=== PATIENT | male | born 1960 ===

== ENCOUNTER 2018-05-08 07:50 | Day surgery (SDC) | payer OTHER ==
[2018-05-07 10:48] LABS: BASOPHILS 0.4 % (0-2); EOSINOPHILS 1.3 % (0-7); HEMATOCRIT 43.6 % (42.0-54.0); HEMOGLOBIN 14.8 g/dL (13.5-17.5); IMMATURE GRANULOCYTES 0.2 % (0-5); LYMPHOCYTES 24.8 % (15-50); MCH 29.4 pg (26.0-34.0); MCHC 33.9 g/dL (31.0-37.0); MCV 86.7 fL (80.0-100.0); MEAN PLATELET VOLUME 9.9 fL (7.4-10.4); MONOCYTES 7.1 % (2-11); NEUTROPHILS 66.2 % (40-80); PLATELET COUNT 171 10x3/uL (130-400); RBC 5.03 10x6/uL (4.20-6.10); RDW 15.1 % (11.5-14.5); WBC 11.2 10x3/uL (4.8-10.8)
[~2018-05-08] VITALS: Ht 177.8 cm; Wt 84.4 kg
[~2018-05-08 07:50] MED LIST: BAYER CHEWABLE81 MG PO; ISOSORBIDE MONO30 M1 PO; KLONOPIN0.5 MG PO; LIPITOR40 MG PO; PROAIR HFA ORAL INH; TENORMIN100 MG PO
[2018-05-08 10:31] VITALS: BP 167/77; Ht 177.8 cm; Wt 84.4 kg
[2018-05-08] MEDS ORDERED: HYDROCODON-ACE1 EAC7 PO (12:56)
[2018-05-08] MEDS ORDERED: CYCLOBENZAPRINE10 MG PO (12:56)
== END 2018-05-08 18:38 | disposition home or self-care (01) ==
LOC: D.OPS 07:50 → D.PAN 10:30 → D.OPS 10:30
PROVIDERS: Anesthesiology
DX: K43.6 Other and unspecified ventral hernia with obstruction, without gangrene (principal); Z01.812 Encounter for preprocedural laboratory examination